=== PATIENT | female | born 1975 | race Caucasian/White ===

== ENCOUNTER 2017-03-13 13:54 | Emergency (ER) | payer BC ==
[~2017-03-13] VITALS: Ht 160 cm; Wt 70.0 kg
[~2017-03-13 13:54] MED LIST: ALBU8.5H3 INH; AZIT250T94 PO; LD2VS100B MM; LISI20TA11 PO; PRED20TA PO; RTPRO NEB
[2017-03-13 14:01] VITALS: Ht 160 cm; Wt 70.0 kg
[2017-03-13] MEDS ORDERED: TRAM50TA2 PO (14:40)
[2017-03-13] MEDS ORDERED: MED4DP PO (14:40)
--- NOTE | 2017-03-13 19:11 | ERD ---
ER Documentation Chief Complaint Date/Time DATE: 03/13/17 TIME: 19:08 Chief Complaint B/L HAND AND FOOT PAIN H/O LUPUS HPI This is a 41-year-old female with a history of lupus presenting to the emergency department complaining of bilateral hand and foot pain for the past week. Patient rates the pain 8 out of 10, admits to having restricted range of motion. Patient states that she normally takes naproxen but is not giving her any relief. She states that she went to an urgent care a few days prior to being seen in the given [facility] and she states that it is not helping her. Patient states that her primary care physician is Dr. Mccall and she has not been able to see him yet, she states he has an appointment to see him in April. She denies any fevers. Patient denies any kidney problems ROS All systems reviewed and are negative except as per history of present illness. Medications Home Meds Active Scripts Methylprednisolone* (Medrol* DOSE PACK) 4 Mg/Dose-Pack Tab.ds.pk, 4 MG PO . DIRECTED, #1 PACKET Prov:CARLOS CALVO PA-C 03/13/17 Tramadol HCl (Tramadol HCl) 50 Mg Tablet, 50 MG PO Q4 Y for PAIN, #20 TAB Prov:CARLOS CALVO PA-C 03/13/17 Albuterol Sulfate* (Proventil* Neb) 0.083% Neb, 2.5 MG NEB Q4 Y for SHORTNESS OF BREATH, #30 EA Prov:ALEJANDRO CARRERO DO 11/29/15 Lidocaine Viscous 2%* (Lidocaine Viscous 2%*) 100 Ml Soln, 15 ML MM EVERY 3-4 HOURS PRN, #120 ML Prov:ALEJANDRO CARRERO DO 11/29/15 Azithromycin* (Zithromax*) 250 Mg Tablet, 250 MG PO .RAFA DIRECTED, #6 TAB TAKE 500 MG (2 TABS) THE FIRST DAY THEN 250 MG (1 TAB) DAYS 2-5 Prov:ALEJANDRO CARRERO DO 11/29/15 Prednisone* (Prednisone*) 20 Mg Tab, 60 MG PO DAILY for 5 Days, TAB Prov:ALEJANDRO CARRERO DO 11/29/15 Albuterol Sulfate* (Proair HFA*) 8.5 Gm Hfa.aer.ad, 2 PUFF INH Q4, #1 INHALER Prov:ALEJANDRO CARRERO DO 11/29/15 Reported Medications Lisinopril* (Lisinopril*) 20 Mg Tablet, 20 MG PO DAILY 04/15/14 Allergies Allergies: Coded Allergies: No Known Allergy (Unverified , 03/13/17) PMhx/Soc History of Surgery: Yes (cholecystectomy) Anesthesia Reaction: No Hx Neurological Disorder: No Hx Respiratory Disorders: No Hx Cardiac Disorders: Yes (HTN) Hx Psychiatric Problems: No Hx Miscellaneous Medical Probl: No (Sindi) Hx Alcohol Use: No Hx Substance Use: No Hx Tobacco Use: No Smoking Status: Never smoker Physical Exam Vitals Vital Signs Date Time Temp Pulse Resp B/P Pulse Ox O2 Delivery O2 Flow Rate FiO2 03/13/17 14:01 98.2 85 18 140/90 98 Physical Exam General: WD/WN, in no apparent distress, non-toxic appearing HENT: NC/AT Eyes: Conjunctiva normal Neck: Supple Pulm: Clear to auscultation, normal labored breathing; no wheezing/rales/ rhonchi heard CV: Good capillary refill GI: Non-distended, no guarding Back: No masses Ext: Tender palpation bilateral hands and feet, equal handgrip however weekend due to tenderness in the hands bilaterally Neuro: Moves on all fours Skin: intact Psych: Normal mood Procedures/MDM This is a 41-year-old female presenting to the emergency department with a history of lupus presenting complaining of bilateral hand and foot pain for the past week. It appears the patient is having a flareup of her lupus. I have pulled up cures report and patient has received [facility] a few days prior to being seen in which is consistent with her history of present illness. I have discussed with her that the best that patient called her primary care physician Dr. Lu to state to be seen sooner.. Patient was given a prescription for tramadol and Medrol Dosepak. I discussed with her to return to the ER for any worsening signs or symptoms. She understands and agrees this plan Departure Diagnosis: Primary Impression: History of lupus Additional Impression: Bilateral hand pain Condition: Stable Patient Instructions: Understanding Lupus, Lupus Referrals: RADHA MCCALL Additional Instructions: FOLLOW UP WITH YOUR PRIMARY CARE PHYSICIAN TOMORROW.Return to this facility if you are not improving as expected. Take all medicines as directed. Return to this facility if you are not improving as expected. CARLOS CALVO PA-C Mar 13, 2017 19:11
== END 2017-03-13 15:58 | disposition home or self-care (01) ==
LOC: FTE 13:54
DX: Z87.39 Personal history of other diseases of the musculoskeletal system and connective tissue (principal); M79.642 Pain in left hand; I10 Essential (primary) hypertension
CPT/HCPCS: 99284